=== PATIENT | male | born 1970 | race Caucasian/White ===

== ENCOUNTER 2017-01-04 08:29 | Emergency (ER) | payer BC ==
[~2017-01-04] VITALS: Ht 177.8 cm; Wt 79.4 kg
[2017-01-04] MEDS ORDERED: AUGMENTIN 875-1 EACH PO (08:54)
[2017-01-04] MEDS ORDERED: KETOROLAC TROME10 MG PO (08:54)
== END 2017-01-04 08:58 | disposition home or self-care (01) ==
LOC: ED 08:29
DX: L02.512 Cutaneous abscess of left hand (principal)
CPT/HCPCS: 99283

== ENCOUNTER 2020-04-06 03:51 | Emergency (ER) | payer BC ==
[~2020-04-06] VITALS: Ht 177.8 cm; Wt 79.4 kg
[~2020-04-06 03:51] MED LIST: AUGMENTIN 875-1 EACH PO; KETOROLAC TROME10 MG PO
--- OUTSIDE RECORDS SUMMARY | 2020-04-06 03:54 | XMS ---
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 Sanjiv has no Care Guidelines for this patient. [place] VISIT COUNT (12 MO.) 1 JARET [facility] TOTAL 1 NOTE: Visits indicate total known visits. ED/UCC VISIT TRACKING (12 MO.) 04/06/2020 03:52 [facility] [place] TYPE: Emergency COMPLAINT: - WEAKNESS/CHEST PAIN/SOB INPATIENT VISIT TRACKING (12 MO.) No inpatient visits to display in this time frame [email or web address]
--- NOTE | 2020-04-06 05:18 | NUR ---
I was called in at 04[address] in ED. I arrived at approx. 0430. PT was stable and getting ready for transfer. He declined spiritual care. I tried to contact the son but go his voice mail. I did not leave a message but the house sup had left one earlier. Checked in with staff.
--- NOTE | 2020-04-06 06:47 | EKG ---
[facility] [address] [place] [address] Signed Sinus tachycardia Possible Left atrial enlargement Acute pericarditis Abnormal ECG When compared with ECG of 06-APR-2020 04:06, (Unconfirmed) Previous ECG has undetermined rhythm, needs review Confirmed by WALTER RAMOS MD ([id number]) on 04/06/2020 6:47:32 AM Electronically Signed By: WALTER RAMOS MD 04/06/20 0647 PATIENT NAME: FRANCISCO PEDERSON ROSALINDA Electrocardiogram DATE OF : 66 PHYSICIAN: WALTER RAMOS MD REPORT #: [id number] REPORT IS CONFIDENTIAL AND NOT TO BE RELEASED WITHOUT AUTHORIZATION
== END 2020-04-06 05:00 | disposition short-term general hospital (02) ==
LOC: ED 03:51
DX: I21.3 ST elevation (STEMI) myocardial infarction of unspecified site (principal); Z20.828 Contact with and (suspected) exposure to other viral communicable diseases; F17.200 Nicotine dependence, unspecified, uncomplicated
CPT/HCPCS: 71045; 80053; 83735; 84484; 85025; 85610; 85730; 92950; 93005; 93010; 99285-25; C9113; C9803; J0171; J0282; J1644; J2270; J2405; J7030; U0003

== ENCOUNTER 2020-05-18 18:21 | Emergency (ER) | payer BC ==
[~2020-05-18] VITALS: Ht 177.8 cm; Wt 81.6 kg
--- OUTSIDE RECORDS SUMMARY | 2020-05-18 18:24 | XMS ---
PreManage Notification: FRANCISCO PEDERSON Security Rod Welder Events No recent Security Events currently on file CRITERIA MET - Group Notification CARE PROVIDERS There are no care providers on record at this time. Sanjiv has no Care Guidelines for this patient. [place] VISIT COUNT (12 MO.) 1 [facility] TOTAL 3 NOTE: Visits indicate total known visits. ED/[facility] VISIT TRACKING (12 MO.) 05/18/2020 18:21 JARET [facility] [place] TYPE: Emergency COMPLAINT: - ACCIDENTAL OVERDOSE [facility]2020 [facility] DIAGNOSES: - cardiac catheterization technician - direct admit 04/06/2020 03:52 [facility] [place] TYPE: Emergency COMPLAINT: - WEAKNESS/CHEST PAIN/SOB DIAGNOSES: - Chest pain, unspecified - ST elevation (STEMI) myocardial infarction of unspecified site - Contact with and (suspected) exposure to other viral communicable diseases - Nicotine dependence, unspecified, uncomplicated INPATIENT VISIT TRACKING (12 MO.) 04/06/2020 05:[facility] DIAGNOSES: - cardiac catheterization technician - direct admit - ST elevation (STEMI) myocardial infarction involving left anterior descending coronary artery [email or web address]
[2020-05-18] MEDS ORDERED: CARVEDILOL3.125 MG PO (18:35)
[2020-05-18] MEDS ORDERED: CLOPIDOGREL75 MG PO (18:35)
[2020-05-18] MEDS ORDERED: ATORVASTATIN CA80 MG PO (18:35)
[2020-05-18] MEDS ORDERED: AMIODARONE HCL400 MG PO (18:35)
--- NOTE | 2020-05-19 07:38 | EKG ---
[facility] [address] [place] [address] Signed Normal sinus rhythm T wave abnormality, consider anterolateral ischemia Prolonged QT Abnormal ECG When compared with ECG of 06-APR-2020 04:07, QRS duration has increased ST no longer elevated in Anterolateral leads T wave inversion now evident in Anterolateral leads Confirmed by WALTER RAMOS MD ([id number]) on 05/19/2020 7:37:49 AM Electronically Signed By: WALTER RAMOS MD 05/19/20 0738 PATIENT NAME: FRANCISCO PEDERSON ROSALINDA Electrocardiogram DATE OF : 66 PHYSICIAN: WALTER RAMOS MD REPORT #: [id number] REPORT IS CONFIDENTIAL AND NOT TO BE RELEASED WITHOUT AUTHORIZATION
== END 2020-05-18 19:16 | disposition home or self-care (01) ==
LOC: ED 18:21
DX: T46.2X1A Poisoning by other antidysrhythmic drugs, accidental (unintentional), initial encounter (principal); I25.2 Old myocardial infarction; F17.200 Nicotine dependence, unspecified, uncomplicated; Z79.899 Other long term (current) drug therapy
CPT/HCPCS: 93005; 93010; 99284-25